=== PATIENT | female | born 1975 | race Caucasian/White ===

== ENCOUNTER 2017-07-18 13:41 | Emergency (ER) | payer SELFPAY ==
--- NOTE | 2017-07-18 14:10 | EDPHY ---
H & P Stated Complaint: Flank Pain and Cough - Personal History LMP (Females 10-55): Over 28 Days Ago Current Tetanus Diphtheria and Acellular Pertussis (TDAP): Yes - Medical/Surgical History Hx Asthma: No Hx Chronic Respiratory Disease: No Hx Diabetes: No Hx Cardiac Disease: No Hx Renal Disease: No Hx Cirrhosis: No Hx Alcoholism: No Hx HIV/AIDS: No Hx Splenectomy or Spleen Trauma: No Other PMH: Hep C, Current IV Drug Abuse (Meth/THC), 7 live births - Social History Smoking Status: Current every day smoker Time Seen by Provider: 07/18/17 13:59 HPI/ROS: CHIEF COMPLAINT: Left flank pain x3 days, cough x2 weeks HISTORY OF PRESENT ILLNESS: 41-year-old homeless female, G10, P7, TAB1, SAB 1, currently possibly 1 month based on recent test, self presents to the ER complaining of left flank pain for the past 3 days, cough for the past 2 weeks described as productive. Patient smokes 1/2 pack per day tobacco, history of IV methamphetamine use last use 3 weeks ago, history of chronic marijuana smoking. She denies: Dyspnea, chest pain, back pain beyond her left flank pain, trauma, abdominal pain, vaginal bleeding or discharge, dysuria, hematuria, increased urinary frequency, hemoptysis, immobilization REVIEW OF SYSTEMS: A ten point review of systems was performed and is negative with the exception of the items mentioned in the HPI PAST MEDICAL & SURGICAL HISTORY: G10, P7, TAB1, SAB 1. hepatitis-C. No history of malignancy. No history of mobilization. SOCIAL HISTORY: Positive for IV methamphetamine use most recently 3 weeks ago. Daily tobacco abuse. Daily marijuana abuse. Moved from [place] recently. Currently homeless. PHYSICAL EXAM (Prior to examination, patient consented to physical exam, hands were washed and my usual and customary physical exam procedures followed) 1) GENERAL: Sleeping upon entering the room, easily woken. Well-developed, well-nourished, alert and oriented. Appears nontoxic 2) HEAD: Normocephalic, atraumatic 3) HEENT: Pupils equal, round, reactive to light bilaterally. Sclera anicteric. 4) NECK: Full range of motion, no meningeal signs. 5) LUNGS: Clear auscultation bilaterally, no wheezes, no rhonchi, no retractions. 6) HEART: Regular rate and rhythm, no murmur, no heave, no gallop. 7) ABDOMEN: No guarding, no rebound, no focal tenderness, negative McBurney's, negative Steel's, negative Rovsing's, negative peritoneal sign, negative Homans no palpable cord 8) MUSCULOSKELETAL: Moving all extremities, no focal areas of tenderness, no obvious trauma. No peripheral edema or discoloration. 9) BACK: Negative CVA tenderness, no midline vertebral tenderness, no fluctuance, no step-off, no obvious trauma, no visual or palpable abnormality. 10) SKIN: No rash, no petechiae. 11) Psychiatric: Patient is oriented X 3, there is no agitation. DIFFERENTIAL DIAGNOSIS: In no particular include but limited to lower lobe pneumonia, pyelonephritis, nephrolithiasis (Naresh,Ramón Song) Constitutional: Initial Vital Signs Temperature (C) 36.9 C 07/18/17 13:52 Heart Rate 87 07/18/17 13:52 Respiratory Rate 18 07/18/17 13:52 Blood Pressure 118/72 07/18/17 13:52 O2 Sat (%) 98 07/18/17 13:52 O2 Delivery Mode Room Air Allergies/Adverse Reactions: No Known Allergies Allergy (Unverified 07/18/17 13:51) Home Medications: Medication Instructions Recorded Albuterol [Proventil Inhaler HFA 1 - 2 puffs IH Q4PRN PRN #1 mdi 07/18/17 (*)] Azithromycin [Zithromax] 500 mg PO DAILY #1 tablet 07/18/17 Benzonatate [Tessalon Pearles (RX)] 200 mg PO TID PRN #15 cap 07/18/17 Ondansetron Odt [Zofran Odt] 4 mg PO Q4PRN PRN #7 tab 07/18/17 Medical Decision Making - Diagnostics Imaging: Discussed imaging studies w/ call center coordinator Radiologist ED Course/Re-evaluation: 2:10 p.m.: Patient states that she is currently complaining of left flank pain in the presence of URI symptoms for the past 2 weeks. We discussed possible lower lobe pneumonia. At this time will wait on further diagnostic studies until results of urinalysis and test returned. 3:04 p.m.: Patient's test is negative. Will obtain chest x-ray evaluate for possible lower lobe pneumonia. 3:35 p.m.: Re-evaluation, she is sleeping, easily woken discussed her negative renal ultrasound. Her chest x-ray interpreted by staff radiologist showed a likely lower lobe pneumonia which is consistent with location of her plain. Urinalysis positive for blood only. She is not . Discussed my differential diagnosis. I think that peripheral pulmonary embolus is less than likely likely in this low risk patient, with zero Wells and perc score. Doubt pyelonephritis. She is noted to have 1+ blood in her urine. She has no evidence of hydronephrosis or perinephric stranding. I do not think that CT imaging is indicated at this time. Her pain is controlled, notably she is noted to be sleeping on numerous instances upon entering the room. Discussed smoking cessation, spent greater than 3 min and less than 10 min discussing smoking cessation with the patient. Also discussed polysubstance abuse cessation. discussed contraception as she notes she is not trying to get . (Ramón Infante) I did not see this patient while she was in the emergency department. However her care was discussed with the PA while the patient was in the department. I agree with treatment plan and management (Marco Bloom) Departure - Departure Disposition: Home, Routine, Self-Care Clinical Impression: Pneumonia Condition: Good Instructions: Upper Respiratory Infection (ED) Additional Instructions: Please stop using methamphetamine, tobacco and marijuana products. Unless you are trying to get , please consider using contraception. Return to the ER if you develop new or worsening symptoms, if you develop chest pain, shortness of breath or any other symptoms that concern you. Referrals: [facility],. [Clinic] - 1-2 days without fail Prescriptions: Albuterol [Proventil Inhaler HFA (*)] 1 - 2 puffs IH Q4PRN PRN #1 mdi PRN Reason: Cough, Moderate Azithromycin [Zithromax] 500 mg PO DAILY #1 tablet Benzonatate [Tessalon Pearles (RX)] 200 mg PO TID PRN #15 cap PRN Reason: Cough, Moderate Ondansetron Odt [Zofran Odt] 4 mg PO Q4PRN PRN #7 tab PRN Reason: Nausea
[2017-07-18 16:02] VITALS: BP 101/56
== END 2017-07-18 16:02 | disposition home or self-care (01) ==
DX: J18.1 Lobar pneumonia, unspecified organism (principal); F17.200 Nicotine dependence, unspecified, uncomplicated

== ENCOUNTER 2017-08-09 19:29 | Emergency (ER) | payer MEDICAID ==
--- NOTE | 2017-08-09 21:08 | EDPHY ---
H & P Time Seen by Provider: 08/09/17 20:52 HPI/ROS: Chief complaint. Headache, nausea, chills, weak HPI. Patient is 41-year-old female with the above complaints that started today. Also cough. Upper respiratory symptoms. Seen for pneumonia 1 month ago but did not fill prescriptions for albuterol or Zithromax. She has some flank pain. No abdominal pain. Nausea but no vomiting. No urinary symptoms. No fever but D she did have some chills. ROS Constitutional. Chills, weakness Eyes. no problems with vision ENT. no sore throat, no nasal drainage Cardiovascular. no chest pain Respiratory. Cough Abdominal. Nausea . no problems urinating MS. no calf pain/swelling, no neck/back pain, no joint pain Skin. no rash Lymph. no swollen glands Neuro. Headache Past Medical/Surgical History: IV meth use, hep C, left breast surgery Social History: Single, daily smoker, no alcohol Smoking Status: Current every day smoker Physical Exam: General Appearance: Alert well-developed female mild distress vital signs are stable Eyes: Pupils equal and round no pallor or injection. ENT, Mouth: Mucous membranes are moist. Respiratory: There are no retractions, lungs are clear to auscultation. Cardiovascular: Regular rate and rhythm. Gastrointestinal: Abdomen is soft and nontender, no masses, bowel sounds normal. Neurological: Awake and alert, sensory and motor exams grossly normal. Skin: Warm and dry, no rashes. Musculoskeletal: Neck is supple nontender. Extremities symmetrical, full range of motion. Psychiatric: Patient is oriented X 3, there is no agitation. Constitutional: Initial Vital Signs Temperature (C) 36.7 C 08/09/17 19:30 Heart Rate 95 08/09/17 19:30 Respiratory Rate 16 08/09/17 19:30 Blood Pressure 106/61 08/09/17 19:30 O2 Sat (%) 96 08/09/17 19:30 O2 Delivery Mode Room Air Allergies/Adverse Reactions: No Known Allergies Allergy (Verified 08/09/17 19:33) Home Medications: Medication Instructions Recorded NK [No Known Home Meds] 08/09/17 Medical Decision Making - Diagnostics Imaging Results: Imaging Impressions Chest X-Ray 08/09/17 21:12 Impression: Bronchial thickening, which could be seen with bronchitis/airways disease or mild fluid overload. Chest x-ray interpreted by me shows airways disease. No pneumonia Procedures: IV normal saline with 1 L saline given. IV Reglan Benadryl and Toradol ED Course/Re-evaluation: Re-evaluation 9:45 p.m.. Patient is stable Re-evaluation 10:15 p.m.. Patient is resting comfortably. No headache. No vomiting. She and I discussed laboratory evaluation, treatment plan including criteria for return importance of follow-up and further evaluation. She expresses understanding and agreement Differential Diagnosis: I considered urinary tract infection, pneumonia, viral syndrome, migraine headache - Data Points Laboratory Results: Laboratory Results 08/09/17 20:51 08/09/17 20:51 08/09/17 08/09/17 08/09/17 21:55 20:51 20:51 WBC RBC Hgb Hct MCV MCH MCHC RDW Plt Count MPV Neut % (Auto) Lymph % (Auto) [place] % (Auto) Eos % (Auto) Baso % (Auto) Nucleat RBC Rel Count Absolute Neuts (auto) Absolute Lymphs (auto) Absolute Monos (auto) Absolute Eos (auto) Absolute Basos (auto) Absolute Nucleated RBC Immature Gran % Immature Gran # RBC/WBC/PLT Morphology Platelet Estimate Sodium 135 mEq/L mEq/L (135-145) Potassium 3.0 mEq/L L mEq/L (3.3-5.0) Chloride 100 mEq/L mEq/L (97-110) Carbon Dioxide 26 mEq/l mEq/l (22-31) Anion Gap 9 mEq/L mEq/L (8-16) BUN 16 mg/dL mg/dL (7-23) Creatinine 0.8 mg/dL mg/dL (0.6-1.0) Estimated GFR > 60 Glucose 104 mg/dL H mg/dL (70-100) Calcium 8.4 mg/dL L mg/dL (8.5-10.4) Beta HCG, Qual NEGATIVE Urine Color YELLOW Urine Appearance CLEAR Urine pH 6.0 (5.0-7.5) Ur Specific [place] 1.005 (1.002-1.030) Urine Protein NEGATIVE (NEGATIVE) Urine Ketones NEGATIVE (NEGATIVE) Urine Blood NEGATIVE (NEGATIVE) Urine Nitrate NEGATIVE (NEGATIVE) Urine Bilirubin NEGATIVE (NEGATIVE) Urine Urobilinogen NEGATIVE EU EU (0.2-1.0) Ur Leukocyte Esterase NEGATIVE (NEGATIVE) Urine RBC 1-3 /hpf /hpf (0-3) Urine WBC 1-3 /hpf /hpf (0-3) Ur Epithelial Cells TRACE /lpf /lpf (NONE-1+) Urine Bacteria TRACE /hpf H /hpf (NONE SEEN) Urine Glucose NEGATIVE (NEGATIVE) 08/09/17 20:51 WBC 11.34 10^3/uL H 10^3/uL (3.80-9.50) RBC 4.21 10^6/uL 10^6/uL (4.18-5.33) Hgb 12.8 g/dL g/dL (12.6-16.3) Hct 37.4 % L % (38.0-47.0) MCV 88.8 fL fL (81.5-99.8) MCH 30.4 pg pg (27.9-34.1) MCHC 34.2 g/dL g/dL (32.4-36.7) RDW 13.3 % % (11.5-15.2) Plt Count 168 10^3/uL 10^3/uL (150-400) MPV 10.5 fL fL (8.7-11.7) Neut % (Auto) 89.7 % H % (39.3-74.2) Lymph % (Auto) 4.0 % L % (15.0-45.0) [place] % (Auto) 5.2 % % (4.5-13.0) Eos % (Auto) 0.1 % L % (0.6-7.6) Baso % (Auto) 0.2 % L % (0.3-1.7) Nucleat RBC Rel Count 0.0 % % (0.0-0.2) Absolute Neuts (auto) 10.17 10^3/uL H 10^3/uL (1.70-6.50) Absolute Lymphs (auto) 0.45 10^3/uL L 10^3/uL (1.00-3.00) Absolute Monos (auto) 0.59 10^3/uL 10^3/uL (0.30-0.80) Absolute Eos (auto) 0.01 10^3/uL L 10^3/uL (0.03-0.40) Absolute Basos (auto) 0.02 10^3/uL 10^3/uL (0.02-0.10) Absolute Nucleated RBC 0.00 10^3/uL 10^3/uL (0-0.01) Immature Gran % 0.8 % % (0.0-1.1) Immature Gran # 0.09 10^3/uL 10^3/uL (0.00-0.10) RBC/WBC/PLT Morphology TNP Platelet Estimate TNP Sodium Potassium Chloride Carbon Dioxide Anion Gap BUN Creatinine Estimated GFR Glucose Calcium Beta HCG, Qual Urine Color Urine Appearance Urine pH Ur Specific [place] Urine Protein Urine Ketones Urine Blood Urine Nitrate Urine Bilirubin Urine Urobilinogen Ur Leukocyte Esterase Urine RBC Urine WBC Ur Epithelial Cells Urine Bacteria Urine Glucose Medications Given: Discontinued Medications Diphenhydramine HCl (Benadryl Injection) 25 mg IVP EDNOW ONE Stop: 08/09/17 21:12 Last Admin: 08/09/17 21:23 Dose: 25 mg Sodium Chloride (Ns) 1,000 mls @ 0 mls/hr IV EDNOW ONE; Wide Open PRN Reason: Protocol Stop: 08/09/17 21:12 Last Admin: 08/09/17 21:00 Dose: 1,000 mls Ketorolac Tromethamine (Toradol) 30 mg IVP EDNOW ONE Stop: 08/09/17 21:12 Last Admin: 08/09/17 21:24 Dose: 30 mg Metoclopramide HCl (Reglan Injection) 10 mg IVP EDNOW ONE Stop: 08/09/17 21:12 Last Admin: 08/09/17 21:22 Dose: 10 mg Departure - Departure Disposition: Home, Routine, Self-Care Clinical Impression: Viral syndrome Condition: Good Instructions: Viral Syndrome (ED) Additional Instructions: Frequent, small sips fluids well nauseated. Gradual diet advancement . Tylenol 1000 mg every 4-6 hours, ibuprofen 600 mg every 6 hr as needed for headache in chills. Return for worsening symptoms. Recheck in 2 days if not continuing to improve Referrals: NONE *PRIMARY CARE P,. [Primary Care Provider] - As per Instructions [facility] [Outside] - 2-3 days, if not improved
[2017-08-09] MEDS ORDERED: KETOROLAC 30 MG/1 ML SDV IVP ONE (21:11)
[2017-08-09] MEDS ORDERED: NS 1,000 ML IV ONE (21:11)
[2017-08-09] MEDS ORDERED: METOCLOPRAMIDE 10 MG/2 ML VIAL IVP ONE (21:11)
[2017-08-09 21:20] LABS: PLATELET COUNT 168 10^3/uL (150-400)
[2017-08-10 05:51] VITALS: BP 118/60
== END 2017-08-09 22:24 | disposition home or self-care (01) ==
DX: B34.9 Viral infection, unspecified (principal); F17.200 Nicotine dependence, unspecified, uncomplicated; E86.9 Volume depletion, unspecified
CPT/HCPCS: 96374; J1200; J1885; J2765

== ENCOUNTER 2017-11-11 15:01 | Emergency (ER) | payer SELFPAY ==
--- NOTE | 2017-11-11 16:00 | EDPHY ---
General Time Seen by Provider: 11/11/17 15:56 Narrative: CHIEF COMPLAINT: Shoulder pain, neck pain, fall HISTORY OF PRESENT ILLNESS: Patient complains of left-sided neck pain left shoulder pain after falling 2 weeks ago. She says she had an injury from her skateboard 4 weeks ago, when she broke her left clavicle. She was seen here for this and had CT scan of the cervical spine, x-ray of the elbow or shoulder. She says she did not follow up with Orthopedics "because no one told me to." She says she was feeling a little bit better until she fell 2 weeks ago, landing on her left shoulder. She denies any head strike or loss of conscious. No headache. She has left-sided neck pain but no bony tenderness of the neck. No numbness, tingling or weakness. [id number] comes and goes. No incontinence of bowel bladder. No thoracic or lumbar pain. No difficulty ambulating. She also has pain left shoulder that is severe at times. Does not radiate. Worse with movement palpation. Rest. No other associated complaints or modifying factors REVIEW OF SYSTEMS: 10 systems were reviewed and negative with the exception of the elements mentioned in the history of present illness. PCP: None SPECIALISTS: None PAST MEDICAL HISTORY: Hep C, IV drug abuse, PAST SURGICAL HISTORY: Left breast surgery SOCIAL HISTORY: Admits to tobacco use. Document IV drug use history FAMILY HISTORY: Noncontributory EXAMINATION: General Appearance: Alert, no distress Head: normocephalic, atraumatic. No [place] sign. No raccoon eyes. No depression or deformity Eyes: Pupils equal and round, no conjunctival pallor or injection ENT, Mouth: Mucous membranes moist Neck: Normal inspection, supple. Midline trachea. There is no bony tenderness , step-off, crepitus or deformity. There is soft tissue tenderness of left trapezius muscle only with visual spasms Respiratory: Lungs are clear to auscultation Cardiovascular: Tachycardic rate. Regular rhythm. No murmur good signs of perfusion left upper extremity Back: No thoracic or lumbar tenderness. No deformity. No curvature. Neurological: A&O, nonfocal, normal gait. Strength is symmetric in all 4 limbs. Light sensory symmetric in upper lower extremities. Skin: Warm and dry, no rash. Tattoos noted. Well-healed abrasion to the left shoulder Extremities: Tenderness of the left humeral head and left clavicle with mild deformity but no puncture laceration. No tenderness of the left hand, wrist or elbow. Range of motion upper extremities symmetric without any apprehension. Neuro intact distally left upper extremity. Psychiatric: Mood and affect normal DIFFERENTIAL DIAGNOSES: Including but not limited to shoulder sprain, fracture, dislocation, subluxation , compound fracture, hematoma, abrasion, muscle spasm, muscular strain, cervical fracture MDM: 4:00 p.m. Left shoulder pain from injury 2 weeks ago after a left clavicle fracture 4 weeks ago. She also has tenderness of the left trapezius muscle with no bony tenderness of the neck. She has no evidence of acute cord compression or cauda equina with fully normal neuro examination. I have ordered x-ray of the shoulder due to re-injury. There is no other injury of the back. Lungs are clear. Vital signs within normal limits with mild tachycardia. 4:50 p.m. X-ray reveals healing clavicle fracture with may be secondary impaction. No other acute findings. I discussed this with the patient stressed importance of orthopedic follow-up. I provided the original orthopedist on-call that day for her, Dr. Melgoza, as well as the current on-call orthopedist. We discussed using her sling, ice, elevation anti-inflammatories. I will write her for short course of Flexeril. Uncomfortable writing for narcotics as she does have IV drug abuse and recent narcotic prescription. I have answered all of her questions. We discussed ED precautions. Discharged home stable condition. SUPERVISION: This patient was independently evaluated without direct involvement of or examination by the attending physician. CONSULTATION: None. Orthopedic referral - Diagnostics Imaging Results: Imaging Impressions Shoulder X-Ray 11/11/17 16:05 Impression: The left clavicle fracture is healing. There may have been a reinjury with mild impaction during the second fall. Imaging: I viewed and interpreted images myself - History History Review: I reviewed the patient's medical records Smoking Status: Current every day smoker - Objective Vital Signs: Initial Vital Signs Temperature (C) 97.9 F 11/11/17 15:05 Heart Rate 124 H 11/11/17 15:05 Respiratory Rate 18 11/11/17 15:05 Blood Pressure 119/75 11/11/17 15:05 O2 Sat (%) 93 11/11/17 15:05 O2 Delivery Mode Room Air Allergies/Adverse Reactions: No Known Allergies Allergy (Verified 11/11/17 15:04) Home Medications: Medication Instructions Recorded Cyclobenzaprine [Flexeril 10 MG 10 mg PO TID PRN #9 tab 11/11/17 (*)] Medications Given: Discontinued Medications Ibuprofen (Motrin) 600 mg PO EDNOW ONE Stop: 11/11/17 16:07 Last Admin: 11/11/17 16:14 Dose: 600 mg Departure - Departure Disposition: Home, Routine, Self-Care Clinical Impression: Fracture, clavicle closed, shaft Qualifiers: Encounter type: subsequent encounter Fracture alignment: displaced Laterality: left Fracture healing: with routine healing Qualified Code(s): S42.022D - Displaced fracture of shaft of left clavicle, subsequent encounter for fracture with routine healing Sprain of shoulder, left Qualifiers: Encounter type: initial encounter Shoulder sprain type: unspecified sprain Qualified Code(s): S43.402A - Unspecified sprain of left shoulder joint, initial encounter Condition: Good Instructions: Clavicle Fracture (ED), Shoulder Sprain (ED) Additional Instructions: 1. Medications as discussed as needed, including ibuprofen 600mg every 8 hours as needed. Do not take in conjunction with anticoagulants or other NSAIDs 2. Follow up with Orthopedics for definitive care 3. Rest, ice and elevation often. 4. ED precautions as discussed for worsening pain, redness, fever, changes in range of motion, changes in sensation Referrals: Alex Melgoza MD [Medical Doctor] - As per Instructions Cuco Miller MD [Medical Doctor] - As per Instructions Prescriptions: Cyclobenzaprine [Flexeril 10 MG (*)] 10 mg PO TID PRN #9 tab PRN Reason: Spasms
[2017-11-11] MEDS ORDERED: IBUPROFEN 600 MG TAB PO ONE (16:06)
[2017-11-11 17:10] VITALS: BP 137/87
== END 2017-11-11 17:09 | disposition home or self-care (01) ==
DX: S43.402A Unspecified sprain of left shoulder joint, initial encounter (principal); S42.022D Displaced fracture of shaft of left clavicle, subsequent encounter for fracture with routine healing; B19.20 Unspecified viral hepatitis C without hepatic coma; W19.XXXA Unspecified fall, initial encounter; F17.200 Nicotine dependence, unspecified, uncomplicated; Y92.9 Unspecified place or not applicable
CPT/HCPCS: A4565

== ENCOUNTER 2018-01-18 16:51 | Emergency (ER) | payer SELFPAY ==
--- NOTE | 2018-01-18 17:07 | EDPHY ---
H & P Stated Complaint: chest pain, SOB, lt arm pain, dizzy for 1 week Time Seen by Provider: 01/18/18 17:06 - Personal History LMP (Females 10-55): 1-7 Days Ago Current Tetanus/Diphtheria Vaccine: Yes Current Tetanus Diphtheria and Acellular Pertussis (TDAP): Yes - Medical/Surgical History Hx Asthma: No Hx Chronic Respiratory Disease: No Hx Diabetes: No Hx Cardiac Disease: No Hx Renal Disease: No Hx Cirrhosis: No Hx Alcoholism: No Hx HIV/AIDS: No Hx Splenectomy or Spleen Trauma: No Other PMH: Hep C, Current IV Drug Abuse (Meth/THC), 7 live births, left breast surgery - Social History Smoking Status: Current every day smoker Constitutional: Initial Vital Signs Temperature (C) 36.8 C 01/18/18 16:52 Heart Rate 90 01/18/18 16:52 Respiratory Rate 24 H 01/18/18 16:52 Blood Pressure 137/91 H 01/18/18 16:52 O2 Sat (%) 98 01/18/18 16:52 O2 Delivery Mode Room Air Allergies/Adverse Reactions: No Known Allergies Allergy (Verified 11/11/17 15:04) Home Medications: Medication Instructions Recorded Cyclobenzaprine [Flexeril 10 MG 10 mg PO TID PRN #9 tab 11/11/17 (*)] Medical Decision Making - Diagnostics Imaging Results: Imaging Impressions Ribs w/Chest X-Ray 01/18/18 17:41 Impression: 1. Healing or partially healed nonacute left mid clavicle shaft fracture. 2. No left rib or obvious acute thoracic spine abnormality identified. Imaging: I viewed and interpreted images myself ED Course/Re-evaluation: CHIEF COMPLAINT: Chest pain HISTORY OF PRESENT ILLNESS: This patient is a 42 y/o female with history of hepatitis and IV drug abuse complaining of two weeks of chest pain. This began as chest tightness associated with pain radiating through her back to her left shoulder and left arm numbness and tingling. These symptoms have been intermittent for two weeks. Episodes last about 1 minute and resolve spontaneously. They are often associated with facial flushing, shortness of breath, and blurred vision. She presents today because all of her symptoms are occurring simultaneously now, whereas in the past they were interspersed throughout the day. She endorses abdominal pain and diaphoresis. No fever, diarrhea, vomiting, urinary complaints. She endorses drug use including speed and benzodiazepines. She endorses prior IV drug use, but none currently. REVIEW OF SYSTEMS: A comprehensive 10 system review of systems is otherwise negative aside from elements mentioned in the history of present illness and medical decision making. PHYSICAL EXAM: HR, BP, O2 Sat, RR. Temp noted General Appearance: Flushed, mildly diaphoretic. Alert, well hydrated, appropriate, and non-toxic appearing. Head: Atraumatic without scalp tenderness or obvious injury Eyes: Pupils equal, round, reactive to light and accommodation, EOMI, no trauma , no injection. Ears: Clear bilaterally, no perforation, normal landmarks Nose: Atraumatic, no rhinorrhea, clear. Throat: There is no erythema or exudates, no lesions, normal tonsils, mucus membranes moist. Neck: Supple, 2+ carotid upstroke, nontender, no lymphadenopathy. Respiratory: No retractions, no distress, no wheezes, and no accessory muscle use. Lungs are clear to auscultation bilaterally. Cardiovascular: Tenderness over left chest wall. Regular rate and rhythm, no murmurs, rubs, or gallops. Bilateral carotid, radial, dorsalis pedis, and posterior tibial pulses intact. Good capillary refill all extremities. Gastrointestinal: Abdomen is soft, nontender, non-distended, no masses, no rebound, no guarding, no peritoneal signs. Musculoskeletal: Normal active ROM of all extremities, atraumatic. Neurological: Alert, appropriate, and interactive. The patient has normal DTRs and non-focal cranial nerves, motor, sensory, and cerebellar exam. Skin: Mildly diaphoretic, flushed. No rashes, good turgor, no nodules on palpation. Past medical history:Hepatitis C, IV Drug Abuse Past surgical history: Left breast surgery Family history: Noncontributory. Social history: Transient. Single. History of IV drug abuse. DIAGNOSTICS/PROCEDURES/CRITICAL CARE TIME: The 12 lead EKG was interpreted by myself. See hard copy and/or "tracemaster" electronic copy for interpretation. Sinus rhythm. Rate 93. DIFFERENTIAL DIAGNOSIS: The differential diagnosis for the patient's chest pain included but was not limited to myocardial ischemia, pulmonary embolus, chest wall pain, pleural inflammation, and pulmonary infectious causes. MEDICAL DECISION MAKIN42 y/o female presents with 2 weeks of intermittent chest pain radiating to her left shoulder. Tenderness over left chest wall on exam. Plan for EKG, POC troponin. Patient is grasping her chest and states she feels like she is going to pass out due to pain. She complains of pain over her left rib on palpation. She now states she remembers she struck her chest several weeks ago but had forgotten. She cannot remember further details about the injury. Plan for x-ray for further evaluation. Troponin negative. EKG shows sinus rhythm. I do not suspect cardiac etiology for the patient's symptoms today. Reviewed chest/rib x-ray. Evidence of healing or partially healed nonacute left mid clavicle shaft fracture. Reassessed. Discussed imaging results with patient. She is reassured that there is a clear reason for her symptoms. Plan to discharge home in good condition with sling and referral to resident program specialist. Follow up and return precautions discussed. She is comfortable with this plan. - Data Points Laboratory Results: 01/18/18 17:18 POC Troponin I 0.00 ng/mL ng/mL (0.00-0.08) Point of Care Test Results: Chemistry 01/18/18 17:18 POC Troponin I 0.00 ng/mL ng/mL (0.00-0.08) Departure - Departure Disposition: Home, Routine, Self-Care Clinical Impression: Closed left clavicular fracture Qualifiers: Encounter type: initial encounter Clavicle location: shaft Fracture alignment: nondisplaced Qualified Code(s): S42.025A - Nondisplaced fracture of shaft of left clavicle, initial encounter for closed fracture Condition: Good Instructions: Clavicle Fracture (ED) Additional Instructions: Rest, ice, elevation. Follow up with an orthopedic surgeon within one week. Wear sling at all times until reevaluation. Return to the emergency department for worsening pain, swelling, numbness, weakness or other concerns. Referrals: Mart Díaz MD [Medical Doctor] - As per Instructions Report Scribed for: Art Cabrera Report Scribed by: Arcelia Rasmussen Date of Report: 01/18/18 Time of Report: 23:11
[2018-01-18 18:23] VITALS: BP 130/78
--- NOTE | 2018-01-18 19:57 | CPEKG ---
Test Reason : OPEN Blood Pressure : / mmHG Vent. Rate : 093 BPM Atrial Rate : 094 BPM P-R Int : 140 ms QRS Dur : 072 ms QT Int : 347 ms P-R-T Axes : 078 071 067 degrees QTc Int : 432 ms Sinus rhythm Probable anterior infarct, old Confirmed by Art Cabrera ([id number]) on 01/18/2018 7:57:44 PM Referred By: Confirmed By:Art Cabrera
== END 2018-01-18 18:23 | disposition home or self-care (01) ==
DX: S42.025D Nondisplaced fracture of shaft of left clavicle, subsequent encounter for fracture with routine healing (principal); B19.20 Unspecified viral hepatitis C without hepatic coma; F15.10 Other stimulant abuse, uncomplicated; F17.200 Nicotine dependence, unspecified, uncomplicated; W22.8XXD Striking against or struck by other objects, subsequent encounter
CPT/HCPCS: 84484-PO

== ENCOUNTER 2018-05-02 19:21 | Emergency (ER) | payer MEDICAID, OTHER | END 2018-05-02 20:50 | disposition left against medical advice (07) ==

== ENCOUNTER 2018-05-02 21:33 | Emergency (ER) | payer MEDICAID | END 2018-05-03 05:02 | disposition home or self-care (01) ==

== ENCOUNTER 2018-06-03 07:46 | Emergency (ER) | payer MEDICAID ==
--- NOTE | 2018-06-03 08:04 | EDPHY ---
H & P Time Seen by Provider: 06/03/18 08:00 HPI/ROS: Chief Complaint: Chest tightness, shortness of breath HPI: 42-year-old woman with a history of chronic polysubstance abuse including methamphetamine. Patient states she last used over 24 hr ago. Patient was arrested this morning for an outstanding warrant. Patient states that she has a history of anxiety as well. She developed tightness in the center of her chest with some associated shortness of breath. Patient states she had similar episodes in the past and has been seen here with negative workup. Does not have a family history of coronary artery disease. She has not have a history of coronary disease. No chest pain on exertion. She is not diaphoretic. Patient received aspirin and Zofran by EMS. No cough. No fevers or chills. No nausea vomiting or diarrhea. She is currently pain-free. At worst tightness was a 5/10. ROS: 10 systems were reviewed and were negative except those elements noted in the HPI. PMH: Polysubstance abuse Social History: No smoking, no alcohol, occasional marijuana and methamphetamine , currently homeless Family History: non-contributory Physical Exam: Gen: Awake, Alert, No Distress HEENT: Nose: no rhinorrhea Eyes: PERRLA, EOMI Mouth: Moist mucosa Neck: Supple, no JVD Chest: nontender, lungs clear to auscultation Heart: S1, S2 normal, no murmur Abd: Soft, non-tender, no guarding Back: no CVA tenderness, no midline tenderness Ext: no edema, non-tender Skin: no rash Neuro: CN II-XII intact, Sensation grossly intact, Strength 5/5 in bilateral upper and lower extremities - Medical/Surgical History Hx Asthma: No Hx Chronic Respiratory Disease: No Hx Diabetes: No Hx Cardiac Disease: No Hx Renal Disease: No Hx Cirrhosis: No Hx Alcoholism: No Hx HIV/AIDS: No Hx Splenectomy or Spleen Trauma: No Other PMH: Hep C, Current IV Drug Abuse (Meth/THC), 7 live births, left breast surgery - Social History Smoking Status: Current every day smoker Allergies/Adverse Reactions: No Known Allergies Allergy (Verified 06/03/18 08:06) Home Medications: Medication Instructions Recorded NK [No Known Home Meds] 05/02/18 Medical Decision Making - Diagnostics EKG Interpretation: ECG time 8:03 a.m., sinus rhythm with a rate of 70, normal axis, normal intervals, no acute ST or T-wave changes. Impression: Normal ECG. ED Course/Re-evaluation: 42-year-old woman presenting with tightness in her chest. She has had multiple episodes in the past and has been evaluated here with negative results. Patient began having symptoms while being arrested this morning. Her ECG is normal. Troponin is negative. She has not have any risk factors for acute coronary syndrome or thromboembolic disease. Patient has been reassured. Vital signs are normal. Troponin is negative. Plan will be for discharge with instructions to follow up at [facility] and with [facility]. Return for any concerns. Patient is medically clear for half-way. Departure - Departure Disposition: Law Enforcement/Court/Usp Clinical Impression: Anxiety, Atypical chest pain Condition: Good Instructions: Chest Pain (ED), Anxiety (ED) Additional Instructions: It is very important that you follow up with primary care physician. Please follow up with the [facility] for further evaluation. You may also follow up at [facility] for treatment for your anxiety. Return to the emergency department for worsening chest pain, shortness of breath , fainting, heart racing, or any other concerns. MEDICALLY CLEAR FOR LONG-TERM Referrals: [facility],. [Clinic] - As per Instructions [facility] [Clinic] - As per Instructions
--- NOTE | 2018-06-03 08:24 | CPEKG ---
Test Reason : OPEN Blood Pressure : / mmHG Vent. Rate : 070 BPM Atrial Rate : 068 BPM P-R Int : 136 ms QRS Dur : 069 ms QT Int : 396 ms P-R-T Axes : 086 062 063 degrees QTc Int : 428 ms Sinus rhythm Confirmed by Juaquin Levine ([id number]) on 06/03/2018 8:24:29 AM Referred By: Juaquin Levine Confirmed By:Juaquin Levine
[2018-06-03 08:35] VITALS: BP 109/94
== END 2018-06-03 08:35 ==
LOC: EDUNIT#
DX: F41.9 Anxiety disorder, unspecified (principal); R07.89 Other chest pain; F19.10 Other psychoactive substance abuse, uncomplicated
CPT/HCPCS: 84484-ER

== ENCOUNTER 2018-07-04 02:45 | Emergency (ER) | payer SELFPAY ==
[2018-07-04] MEDS ORDERED: IBUPROFEN 600 MG TAB PO ONE (04:01)
--- NOTE | 2018-07-04 04:13 | EDPHY ---
H & P Stated Complaint: dental pain started 5 days ago now hurts into her face Time Seen by Provider: 07/04/18 04:12 HPI/ROS: HPI CHIEF COMPLAINT: Multiple complaints. HISTORY OF PRESENT ILLNESS: This patient is a 42-year-old female, history of IV drug use, IV methamphetamine, per the patient last used 3 days ago, presents to the emergency room with multiple complaints. She states the 7:30 p.m. Tonight or close to 9 hr ago she was folding laundry developed sudden-onset dental pain in her left and right upper jaw. States rather severe. Continues to bother her here. She has very poor dentition and she is concerned she may have an infection. Also reports that the pain at times goes into her chest and abdomen. States she had chest pain earlier. None currently. Denies shortness of breath. States also she feels numbness and tingling throughout her entire body. She has been told in the past she has been having anxiety panic attack and feels very anxious. She denies fever, denies vomiting, denies diarrhea. Patient also reports to me she has foul-smelling urine and concentrated dark yellow urine. Past Medical History: Significant medical history for IV drug use, hepatitis-C , methamphetamine abuse Past Surgical History: No recent surgery. Social History: IV drug use, IV methamphetamine. Family History: Noncontributory ROS REVIEW OF SYSTEMS: 10 Systems were reviewed and negative with the exception of the elements mentioned in the history of present illness. Exam Constitutional triage nursing summary reviewed, vital signs reviewed, awake/ alert. Eyes normal conjunctivae and sclera, EOMI, PERRLA. HENT oropharynx very poor dentition. No gumline abscess. Multiple dental decay present. No signs of Thierno's, no signs of MILK HANDLER or RPA, moist mucus membranes, no epistaxis, neck supple/ no meningismus, no raccoon eyes. Respiratory clear to auscultation bilaterally, normal breath sounds, no respiratory distress, no wheezing. Cardiovascular rate normal, regular rhythm, no murmur, no edema, distal pulses normal. Gastrointestinal soft, non-tender, no rebound, no guarding, normal bowel sounds, no distension, no pulsatile mass. Genitourinary no CVA tenderness. Musculoskeletal no midline vertebral tenderness, full range of motion, no calf swelling, no tenderness of extremities, no meningismus, good pulses, neurovascularly intact. Skin pink, warm, & dry, no rash, skin atraumatic. Neurologic awake, alert and oriented x 3, AAOx3, moves all 4 extremities equally, motor intact, sensory intact, CN II-XII intact, normal cerebellar, normal vision, normal speech. Psychiatric normal mood/affect. Heme/Lymph/Immune no lymphadenopathy. Differential Diagnosis: Includes but is not limited to in a particular order methamphetamine abuse, drug intoxication, IV drug abuse, electrolyte disturbance , pneumonia, sepsis, bacteremia, dental infection, acute coronary syndrome, pneumothorax. Medical Decision Making: Plan for this patient multiple complaints including anxiety, dental pain, chest pain and abdominal pain, will obtain EKG, troponin, chest x-ray, basic labs, lipase, LFTs, urinalysis Re-evaluation: EKG interpretation by me on record in [employer] system. Impression time of EKG 4:31 a.m., sinus rhythm rate of 85, without any signs of acute ischemia. Unremarkable EKG. Very limited motion artifact 2, 3, AVF. But no ST elevation. 0654: Patient re-evaluated this time resting comfortably. Lab work reviewed shows normal electrolytes and normal CBC. Her troponin is noted to be negative. EKG is nonischemic. Chest x-ray unremarkable I will place her on Pen VK for dental pain and possible dental infection. There was no large gumline abscess. No signs of significant infection in the oropharynx however there is bad dental decay. Additionally the patient had a panic attack here in emergency room. She received 1mg IV ativan. 0659AM: Re-examination patient is doing well. She feels much better after IV Ativan. She is in no acute distress. Resting comfortably. She states she feels much better. Believe she had anxiety/panic attack. Urinalysis reviewed shows nitrite positive. Urine culture be sent. 1 g Rocephin, Keflex for home as well as Pen-VK for her dental infection. I updated patient about her urine results. Recommend she stays well hydrated drink lots of fluids. Return emergency room if worsening symptoms includes abdominal pain, back pain, fever, vomiting, not doing well. She understands and is comfortable this plan. Patient's drug screen positive for methamphetamine. Source: Patient - Personal History LMP (Females 10-55): 1-7 Days Ago Current Tetanus/Diphtheria Vaccine: Yes Current Tetanus Diphtheria and Acellular Pertussis (TDAP): Yes - Medical/Surgical History Hx Asthma: No Hx Chronic Respiratory Disease: No Hx Diabetes: No Hx Cardiac Disease: No Hx Renal Disease: No Hx Cirrhosis: No Hx Alcoholism: No Hx HIV/AIDS: No Hx Splenectomy or Spleen Trauma: No Other PMH: Hep C, Current IV Drug Abuse (Meth/THC), 7 live births, left breast surgery - Social History Smoking Status: Current every day smoker Constitutional: Initial Vital Signs Temperature (C) 36.4 C 07/04/18 02:52 Heart Rate 74 07/04/18 02:52 Respiratory Rate 16 07/04/18 02:52 Blood Pressure 140/97 H 07/04/18 02:52 O2 Sat (%) 100 07/04/18 02:52 O2 Delivery Mode Room Air Allergies/Adverse Reactions: No Known Allergies Allergy (Verified 07/04/18 02:55) Home Medications: Medication Instructions Recorded Cephalexin [Keflex] 500 mg PO Q6H #28 cap 07/04/18 Penicillin V Potassium [Penicillin 500 mg PO BID #14 tab 07/04/18 VK] Medical Decision Making - Data Points Laboratory Results: Laboratory Results 07/04/18 04:30 07/04/18 04:30 07/04/18 07/04/18 07/04/18 07:10 04:41 04:30 WBC RBC Hgb Hct MCV MCH MCHC RDW Plt Count MPV Neut % (Auto) Lymph % (Auto) [place] % (Auto) Eos % (Auto) Baso % (Auto) Nucleat RBC Rel Count Absolute Neuts (auto) Absolute Lymphs (auto) Absolute Monos (auto) Absolute Eos (auto) Absolute Basos (auto) Absolute Nucleated RBC Immature Gran % Seg Neutrophils % Band Neutrophils % Lymphocytes % Monocytes % Eosinophils % Basophils % Metamyelocytes % Myelocytes % Promyelocytes % Blast Cells % Immature Gran # Absolute Seg Neuts Absolute Band Neuts Absolute Lymphocytes Absolute Monocytes Absolute Eosinophils Absolute Basophils Absolute Metamyelocyte Absolute Myelocytes Absolute Promyelocytes Absolute Plasma Cells Nucleated RBCs RBC/WBC/PLT Morphology Absolute Blast Cells Plasma Cells % Platelet Estimate Sodium Potassium Chloride Carbon Dioxide Anion Gap BUN Creatinine Estimated GFR Glucose Calcium Total Bilirubin Conjugated Bilirubin Unconjugated Bilirubin AST ALT Alkaline Phosphatase POC Troponin I 0.00 ng/mL ng/mL (0.00-0.08) Total Protein Albumin Lipase Beta HCG, Qual NEGATIVE Urine Color YELLOW Urine Appearance CLEAR Urine pH 7.0 (5.0-7.5) Ur Specific [place] 1.008 (1.002-1.030) Urine Protein NEGATIVE (NEGATIVE) Urine Ketones NEGATIVE (NEGATIVE) Urine Blood NEGATIVE (NEGATIVE) Urine Nitrate POSITIVE H (NEGATIVE) Urine Bilirubin NEGATIVE (NEGATIVE) Urine Urobilinogen NEGATIVE EU EU (0.2-1.0) Ur Leukocyte Esterase TRACE H (NEGATIVE) Urine RBC NONE SEEN /hpf /hpf (0-3) Urine WBC 1-3 /hpf /hpf (0-3) Ur Epithelial Cells TRACE /lpf /lpf (NONE-1+) Urine Bacteria TRACE /hpf H /hpf (NONE SEEN) Urine Glucose NEGATIVE (NEGATIVE) Urine Opiates Screen NEGATIVE (NEGATIVE) Urine Barbiturates NEGATIVE (NEGATIVE) Ur Phencyclidine Scrn NEGATIVE (NEGATIVE) Ur Amphetamine Screen NON-NEGATIVE H (NEGATIVE) U Benzodiazepines Scrn NEGATIVE (NEGATIVE) Urine Cocaine Screen NEGATIVE (NEGATIVE) U Marijuana (THC) Screen NEGATIVE (NEGATIVE) 07/04/18 07/04/18 04:30 04:30 WBC 6.24 10^3/uL 10^3/uL (3.80-9.50) RBC 4.74 10^6/uL 10^6/uL (4.18-5.33) Hgb 14.7 g/dL g/dL (12.6-16.3) Hct 43.1 % % (38.0-47.0) MCV 90.9 fL fL (81.5-99.8) MCH 31.0 pg pg (27.9-34.1) MCHC 34.1 g/dL g/dL (32.4-36.7) RDW 13.7 % % (11.5-15.2) Plt Count 217 10^3/uL 10^3/uL (150-400) MPV 9.9 fL fL (8.7-11.7) Neut % (Auto) Not Reported Lymph % (Auto) Not Reported [place] % (Auto) Not Reported Eos % (Auto) Not Reported Baso % (Auto) Not Reported Nucleat RBC Rel Count Not Reported Absolute Neuts (auto) Not Reported Absolute Lymphs (auto) Not Reported Absolute Monos (auto) Not Reported Absolute Eos (auto) Not Reported Absolute Basos (auto) Not Reported Absolute Nucleated RBC Not Reported Immature Gran % Not Reported Seg Neutrophils % 48.5 % % Band Neutrophils % 0.0 % % Lymphocytes % 39.4 % % Monocytes % 6.1 % % Eosinophils % 5.0 % % Basophils % 1.0 % % Metamyelocytes % 0.0 % % Myelocytes % 0.0 % % Promyelocytes % 0.0 % % Blast Cells % 0.0 % % Immature Gran # Not Reported Absolute Seg Neuts 3.03 10^3/uL 10^3/uL (1.70-6.50) Absolute Band Neuts 0.00 10^3/uL 10^3/uL (0.00-0.70) Absolute Lymphocytes 2.46 10^3/uL 10^3/uL (1.00-3.00) Absolute Monocytes 0.38 10^3/uL 10^3/uL (0.30-0.80) Absolute Eosinophils 0.31 10^3/uL 10^3/uL (0.03-0.40) Absolute Basophils 0.06 10^3/uL 10^3/uL (0.02-0.10) Absolute Metamyelocyte 0.00 10^3/mL 10^3/mL (0.00-0.00) Absolute Myelocytes 0.00 10^3/mL 10^3/mL (0.00-0.00) Absolute Promyelocytes 0.00 10^3/uL 10^3/uL (0.00-0.00) Absolute Plasma Cells 0.00 10^3/uL 10^3/uL (0.00-0.00) Nucleated RBCs 0 /100 WBC /100 WBC (0-0) RBC/WBC/PLT Morphology NORMAL (NORMAL) Absolute Blast Cells 0.00 10^3/uL 10^3/uL (0.00-0.00) Plasma Cells % 0.0 % % Platelet Estimate ADEQUATE (ADEQ) Sodium 138 mEq/L mEq/L (135-145) Potassium 3.6 mEq/L mEq/L (3.5-5.2) Chloride 105 mEq/L mEq/L (97-110) Carbon Dioxide 22 mEq/l mEq/l (22-31) Anion Gap 11 mEq/L mEq/L (6-14) BUN 16 mg/dL mg/dL (7-23) Creatinine 0.7 mg/dL mg/dL (0.6-1.0) Estimated GFR > 60 Glucose 99 mg/dL mg/dL (70-100) Calcium 9.8 mg/dL mg/dL (8.5-10.4) Total Bilirubin 0.6 mg/dL mg/dL (0.1-1.4) Conjugated Bilirubin 0.3 mg/dL mg/dL (0.0-0.5) Unconjugated Bilirubin 0.3 mg/dL mg/dL (0.0-1.1) AST 36 IU/L IU/L (14-46) ALT 45 IU/L IU/L (9-52) Alkaline Phosphatase 96 IU/L IU/L (38-126) POC Troponin I Total Protein 7.4 g/dL g/dL (6.3-8.2) Albumin 4.0 g/dL g/dL (3.5-5.0) Lipase 165 IU/L IU/L (23-300) Beta HCG, Qual Urine Color Urine Appearance Urine pH Ur Specific [place] Urine Protein Urine Ketones Urine Blood Urine Nitrate Urine Bilirubin Urine Urobilinogen Ur Leukocyte Esterase Urine RBC Urine WBC Ur Epithelial Cells Urine Bacteria Urine Glucose Urine Opiates Screen Urine Barbiturates Ur Phencyclidine Scrn Ur Amphetamine Screen U Benzodiazepines Scrn Urine Cocaine Screen U Marijuana (THC) Screen Medications Given: Discontinued Medications Sodium Chloride (Ns) 1,000 mls @ 0 mls/hr IV EDNOW ONE; Wide Open PRN Reason: Protocol Stop: 07/04/18 04:23 Last Admin: 07/04/18 04:38 Dose: 1,000 mls Ibuprofen (Motrin) 600 mg PO EDNOW ONE Stop: 07/04/18 04:02 Last Admin: 07/04/18 04:43 Dose: Not Given Lorazepam (Ativan Injection) 1 mg IVP EDNOW ONE Stop: 07/04/18 05:27 Last Admin: 07/04/18 05:28 Dose: 1 mg Point of Care Test Results: Chemistry 07/04/18 04:41 POC Troponin I 0.00 ng/mL ng/mL (0.00-0.08) Departure - Departure Disposition: Home, Routine, Self-Care Clinical Impression: Pain, dental, Anxiety attack Condition: Good Instructions: Urinary Tract Infection in Women (ED), Toothache (ED), Anxiety ( ED) Additional Instructions: 1. Drink lots of fluids stay well-hydrated. 2. Return to the emergency room if worsening symptoms. 3. Antibiotics as prescribed 4. Follow-up with dentistry. 5. You been given 2 antibiotics 1 for your teeth, and 1 for you're urinary tract infection. 6. Take these antibiotics with food not on an empty stomach. Stay well- hydrated drink lots of fluids. Return to the emergency room if worsening symptoms. Referrals: NONE *PRIMARY CARE P,. [Primary Care Provider] - As per Instructions [facility] [Outside] - As per Instructions [facility] [Outside] - As per Instructions Prescriptions: Cephalexin [Keflex] 500 mg PO Q6H #28 cap Penicillin V Potassium [Penicillin VK] 500 mg PO BID #14 tab
[2018-07-04] MEDS ORDERED: NS 1,000 ML IV ONE (04:22)
[2018-07-04 04:48] LABS: PLATELET COUNT 217 10^3/uL (150-400)
[2018-07-04] MEDS ORDERED: LORazepam 2 MG/ML INJ IVP ONE (05:26)
[2018-07-04] MEDS ORDERED: LORazepam 2 MG/ML INJ ONE (05:27)
[2018-07-04] MEDS ORDERED: CEPHALEXIN 500MG PREPACK#4 BTL TAKEHOME ONE (07:35)
--- NOTE | 2018-07-04 07:49 | CPEKG ---
Test Reason : OPEN Blood Pressure : / mmHG Vent. Rate : 085 BPM Atrial Rate : 086 BPM P-R Int : 139 ms QRS Dur : 069 ms QT Int : 380 ms P-R-T Axes : 091 077 072 degrees QTc Int : 452 ms Sinus rhythm Confirmed by Abraham Portillo ([id number]) on 07/04/2018 7:48:50 AM Referred By: Abraham Portillo Confirmed By:Abraham Portillo
[2018-07-04 07:52] VITALS: BP 128/83
== END 2018-07-04 08:31 | disposition home or self-care (01) ==
DX: K08.89 Other specified disorders of teeth and supporting structures (principal); F41.9 Anxiety disorder, unspecified; E86.9 Volume depletion, unspecified; F17.200 Nicotine dependence, unspecified, uncomplicated
CPT/HCPCS: 80305; 84484-ER; 96365; J0696; J2060

== ENCOUNTER 2018-07-14 04:58 | Emergency (ER) | payer MEDICAID ==
[2018-07-14 05:06] VITALS: BP 140/108
--- NOTE | 2018-07-14 05:10 | EDPHY ---
H & P Stated Complaint: Meth Use Time Seen by Provider: 07/14/18 05:02 HPI/ROS: Chief Complaint: Chest pain, methamphetamine use HPI: 42-year-old woman had the onset of chest pain approximately an hour after she smoked methamphetamines. This began about 4 hr ago. Patient 1st had some tightness in her head then she developed tightness in her chest. This is since resolved. Did have some associated shortness of breath. Complaining of sensation some fullness in her throat. She is able to swallow. No cough. No fevers or chills. She does have a history of having similar episodes in the past. I saw her a month and half ago for similar complaint. No family history of coronary artery disease. She does smoke cigarettes. She does not use control. No leg pain or swelling. No periods of immobility. ROS: 10 systems were reviewed and were negative except those elements noted in the HPI. PMH: Denies Social History: Positive smoking, occasional alcohol, history of opioid abuse, current methamphetamine user Family History: non-contributory Physical Exam: Gen: Awake, Alert, No Distress HEENT: Nose: no rhinorrhea Eyes: PERRLA, EOMI Mouth: Moist mucosa Neck: Supple, no JVD Chest: nontender, lungs clear to auscultation Heart: S1, S2 normal, no murmur Abd: Soft, non-tender, no guarding Back: no CVA tenderness, no midline tenderness Ext: no edema, non-tender Skin: no rash Neuro: CN II-XII intact, Sensation grossly intact, Strength 5/5 in bilateral upper and lower extremities - Personal History LMP (Females 10-55): 15-21 Days Ago Current Tetanus/Diphtheria Vaccine: Yes Current Tetanus Diphtheria and Acellular Pertussis (TDAP): Yes - Medical/Surgical History Hx Asthma: No Hx Chronic Respiratory Disease: No Hx Diabetes: No Hx Cardiac Disease: No Hx Renal Disease: No Hx Cirrhosis: No Hx Alcoholism: No Hx HIV/AIDS: No Hx Splenectomy or Spleen Trauma: No Other PMH: Hep C, Current IV Drug Abuse (Meth/THC), 7 live births, left breast surgery - Social History Smoking Status: Current every day smoker Constitutional: Initial Vital Signs Temperature (C) 36.9 C 07/14/18 05:03 Heart Rate 80 07/14/18 05:03 Respiratory Rate 18 07/14/18 05:03 Blood Pressure 140/108 H 07/14/18 05:03 O2 Sat (%) 97 07/14/18 05:03 O2 Delivery Mode Room Air Allergies/Adverse Reactions: No Known Allergies Allergy (Verified 07/14/18 05:00) Home Medications: Medication Instructions Recorded NK [No Known Home Meds] 07/14/18 Medical Decision Making - Diagnostics EKG Interpretation: ECG time 5:14 a.m., sinus rhythm with a rate of 73, normal axis, normal intervals, no acute ST or T-wave changes. Impression: Normal ECG. ED Course/Re-evaluation: 42-year-old presenting with chest discomfort after using methamphetamines. Her ECG is normal. 4 hr troponin after onset of symptoms is 0. Symptoms consistent with methamphetamine use. No evidence of acute coronary or pulmonary process. Will discharge with follow-up as an outpatient. Departure - Departure Disposition: Home, Routine, Self-Care Clinical Impression: Methamphetamine abuse Condition: Good Instructions: Methamphetamine Abuse (ED) Additional Instructions: [facility]3 [facility] for further evaluation. Please seek help to discontinue methamphetamine use. Referrals: [facility],. [Clinic] - As per Instructions
--- NOTE | 2018-07-14 06:26 | CPEKG ---
Test Reason : OPEN Blood Pressure : / mmHG Vent. Rate : 073 BPM Atrial Rate : 072 BPM P-R Int : 146 ms QRS Dur : 087 ms QT Int : 393 ms P-R-T Axes : 076 065 063 degrees QTc Int : 433 ms Sinus rhythm Confirmed by Juaquin Levine ([id number]) on 07/14/2018 6:26:39 AM Referred By: Juaquin Levine Confirmed By:Juaquin Levine
== END 2018-07-14 05:36 | disposition home or self-care (01) ==
LOC: EDUNIT#
DX: F15.10 Other stimulant abuse, uncomplicated (principal); F17.200 Nicotine dependence, unspecified, uncomplicated; B19.20 Unspecified viral hepatitis C without hepatic coma
CPT/HCPCS: 84484-ER

== ENCOUNTER 2018-07-18 23:44 | Emergency (ER) | payer MEDICAID ==
--- NOTE | 2018-07-18 23:51 | EDPHY ---
H & P Time Seen by Provider: 07/18/18 23:51 HPI/ROS: Chief Complaint: I feel like I am going to have a heart attack HPI: This is a 42-year-old female who comes in stating that she inhaled some chemicals tonight which caused her to feel like she was going to have a heart attack. She states that she was accidentally sprayed hard surface clean her on 3 bleach capsules the refused and she developed severe nasal and facial congestion clogged head along with diffuse prickly chest pain and shortness of breath and then she became anxious thinking she might have a heart attack. She states that the chest pain as a prickly pain nothing alleviates or exacerbates it but she feels bad. Patient also states she got anxious with some tingling around her lips. She does have a history of anxiety in the past. PMH: Bad teeth and anxiety. No history of asthma Social History: Positive for Tobacco ROS: Neuro: No headache Constitutional: No Fever, No dizziness ENT: Positive congestion No runny nose, No sore throat Cardiac: Positive Chest Pain Pulmonary: Positive Shortness of Breath GI: No abdominal Pain Skin: No rash Heme: No easy bruising : No urinary problems last menstrual period is current Eyes: No vision problems Musculoskeletal: No neck pain, No back pain Psych: Positive congestion Complete Review of systems negative except as noted above Physical Exam: General: Alert, she is anxious Eyes: no icterus or pallor ENT: Mouth: Mucus membranes moist and she does have postnasal drip and multiple bad teeth but no significant gingival abscess. No sublingual space swelling either. Neck: supple, no lymph nodes, no vertebral tenderness, no meningeal signs Lungs CTA bilaterally, no respiratory distress no stridor or wheezing Cardiac: Normal pulses, normal rate, normal rhythm, normal heart sounds GI: Abd Soft, non tender, no distention Back: Normal inspection, nml ROM, No CVAT, no vertebral tenderness Extremities: No swelling, nml ROM Skin: Warm, pink and dry, no rash, normal turgor Neuro: A&Ox3, MAEE, Nml Speech Reevaluations, MDM, and data interpretation Data Interpretation ED Course Initial Eval: Pt greeted and advised about plan for care. Her pulse ox is normal and she is not tachypneic or tachycardic. Given Atarax p.o. Medical Decision Making Differential Diagnosis and MDM: 42-year-old female with inhalational exposure to bleach fumes but fortunately not asphyxated. Differential diagnosis includes reactive airways, asphyxiation, anxiety and irritant. Patient does have some postnasal drip does not have any wheezing and does not have any signs of an NH and is stable for outpatient management. - Medical/Surgical History Hx Asthma: No Hx Chronic Respiratory Disease: No Hx Diabetes: No Hx Cardiac Disease: No Hx Renal Disease: No Hx Cirrhosis: No Hx Alcoholism: No Hx HIV/AIDS: No Hx Splenectomy or Spleen Trauma: No Other PMH: Hep C, Current IV Drug Abuse (Meth/THC), 7 live births, left breast surgery - Social History Smoking Status: Current every day smoker Constitutional: Initial Vital Signs Temperature (C) 36.6 C 07/18/18 23:50 Heart Rate 82 07/18/18 23:50 Respiratory Rate 18 07/18/18 23:50 Blood Pressure 141/97 H 07/18/18 23:50 O2 Sat (%) 100 07/18/18 23:50 O2 Delivery Mode Room Air Allergies/Adverse Reactions: No Known Allergies Allergy (Verified 07/18/18 23:49) Home Medications: Medication Instructions Recorded Albuterol Sulfate [Albuterol 8.5 gm IH Q4-6PRN PRN #1 hfa.aer.ad 07/19/18 Sulfate Hfa] hydrOXYzine HCL [hydrOXYzine HCL 25 mg PO Q8 PRN #10 tab 07/19/18 (RX)] Medical Decision Making - Data Points Medications Given: Discontinued Medications Hydroxyzine HCl (Hydroxyzine Hcl) 25 mg PO EDNOW ONE Stop: 07/19/18 00:20 Last Admin: 07/19/18 00:29 Dose: 25 mg Departure - Departure Disposition: Home, Routine, Self-Care Clinical Impression: Inhalation injury due to chemical Condition: Good Instructions: Acute Bronchitis (ED), Generalized Anxiety Disorder (ED), How to Use a Nebulizer (ED) Referrals: [facility],. [Clinic] - As per Instructions Patient,NotPresent [Unknown] - As per Instructions Prescriptions: Albuterol Sulfate [Albuterol Sulfate Hfa] 8.5 gm IH Q4-6PRN PRN #1 hfa.[email or web address] PRN Reason: Short Of Breath/Dyspnea hydrOXYzine HCL [hydrOXYzine HCL (RX)] 25 mg PO Q8 PRN #10 tab PRN Reason: Anxiety
[2018-07-19] MEDS ORDERED: hydrOXYzine HCL 25 MG TAB PO ONE (00:19)
[2018-07-19 01:32] VITALS: BP 115/83
== END 2018-07-19 01:40 | disposition home or self-care (01) ==
LOC: EDUNIT#
DX: R07.9 Chest pain, unspecified (principal); R06.02 Shortness of breath; F41.9 Anxiety disorder, unspecified; T59.4X4A Toxic effect of chlorine gas, undetermined, initial encounter